=== PATIENT | male | born 1955 | race Caucasian/White ===

== ENCOUNTER → 2016-09-30 | Day surgery (SDC) | payer MEDICARE ==
[~2016-09-30] VITALS: Ht 177.8 cm; Wt 109.5 kg
[~2016-09-30] MED LIST: BACITRACIN TOP OINT 15 GM TUBE ONE; BUPIVACAINE HCL PF 0.5% 30 ML VIAL ONE; DO NOT ADM ANY ANTICOAGULANT DRUGS XX PRN; FAMOTIDINE 20 MG/2 ML VIAL ONE; HYDR-3583 PO; KETOROLAC TROMETHAMINE 60 MG/2 ML (IM) VIAL IM ONE; LACTATED RINGER'S 1000 ML INJ 1,000 ML ONE; LACTATED RINGER'S 1000 ML INJ 500 ML IV ONE; LIDOCAINE HCL 2% 50 ML VIAL ONE; LISI10TA3 PO; MIDAZOLAM HCL 2 MG/2 ML VIAL ONE; OMEP20TA PO; ONDANSETRON HCL 4 MG/2 ML VIAL IV PUSH ONE; PROPOFOL 200 MG/20 ML AMP IV ONE; ceFAZolin 2 GM PREMIX 50 ML IV SCH; fentaNYL CITRATE 250 MCG/5 ML AMP ONE
[2016-09-30 08:32] VITALS: BP 120/79; PULSE 72; RESP 20; TEMP 97.9; O2SAT 99
--- NOTE | 2016-09-30 09:00 | EKG ---
Date Performed: 09/30/2016 Time Performed: 08:11:59 PTAGE: 60 years EKG: Sinus rhythm NORMAL ECG NO PREVIOUS TRACING DOCTOR: Elías Lara Interpretating Date/Time 09/30/2016 08:58:16
--- NOTE | 2016-09-30 10:22 | PD.OP ---
Operative Report Preoperative Diagnosis: (1) NEOPLASM OF UNSP BEHAVIOR OF BONE, SOFT TISSUE, AND SKIN Postoperative Diagnosis: (1) NEOPLASM OF UNSP BEHAVIOR OF BONE, SOFT TISSUE, AND SKIN Procedure: wide excision and closure chronic skin lesion right hand dorsum Anesthesia: LMA Surgeon: Sushil Woodruff Brush Clearer Surveying(s): ana Operation and Findings: chronic skin lesion dorsal aspect of right hand frozen section: negative margins Sushil Woodruff MD Sep 30, 2016 10:22
[2016-09-30 11:37] VITALS: BP 133/74; PULSE 68; RESP 18; TEMP 96.8; O2SAT 97
--- NOTE | 2016-10-01 16:55 | MP ---
cc: RAMA HARGROVE MD DATE OF SURGERY: 09/30/2016. PREOPERATIVE DIAGNOSIS: Chronic skin lesion, right hand dorsum. POSTOPERATIVE DIAGNOSIS: Chronic skin lesion, right hand dorsum. OPERATIVE PROCEDURE PERFORMED: Wide excision and closure of chronic skin lesion right hand dorsum. SURGEON: Rama Hargrove M.D. ANESTHESIA: LMA. ESTIMATED BLOOD LOSS: Minimal. TOURNIQUET TIME: 38 minutes at 250 mmHg. SPECIMEN: Frozen section - negative margins. DISPOSITION: The patient was recovered sent to the recovery room in stable condition. INDICATIONS FOR THE PROCEDURE: The patient is a 60-year-old right-hand dominant male who presented with complaints of chronic skin lesion over the dorsal aspect of the right hand of three to four years duration. 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 The patient was consented for wide excision, possible closure, possible flap closure, possible full-thickness skin grafting. The patient was explained the risks and benefits of the procedure. DESCRIPTION OF THE PROCEDURE IN DETAIL: The patient was brought to the operating room. Under LMA the right upper extremity was thoroughly prepped and draped. The patient had a chronic skin lesion over the dorsal ulnar aspect of the hand measuring about 8 x 6 mm in diameter. An elliptical incision was marked around the lesion giving enough clear margins on both lateral aspects. After limb elevation, the tourniquet was inflated to 250 mmHg. Incision was then made over the proposed incision site. Sharp dissection was carried out. The flap of skin along with a chronic skin lesion was elevated from the surrounding soft tissue by sharp dissection. Bleeding points were cauterized with bipolar cautery. The specimen was excised and marked as two short strands as distal and one long strand as radial. The material was sent for frozen section. Frozen section was negative margins. Decision was made to proceed with the primary closure of the excision site. Mobilization of skin was carried out. Intradermal stitches were applied using 5-0 Vicryl stitches in an interrupted fashion. This was then followed by 4-0 nylon in a horizontal mattress interrupted fashion. Xeroform and bacitracin dressing applied. Then 5 mL of local anesthesia containing a mixture of 2% lidocaine and 1% Marcaine was injected across incision site. Xeroform and bacitracin dressing was applied. A bulky hand dressing was applied which was held in place by Sof-Rol and a bias hand wrap. The tourniquet was deflated. Total tourniquet time was 38 minutes. The patient had good distal circulation after the tourniquet. He was recovered and sent to the recovery room in stable condition. He will follow up with me in two to three days time for a dressing change. Rama Hargrove MD SE/KAT /10:25 AM /4:46 PM MTDD
== END | disposition home or self-care (01) ==
LOC: HSDC 07:05
PROVIDERS: ATTEND Surgery Surgery of the Hand
DX: D23.71 Other benign neoplasm of skin of right lower limb, including hip (principal); I10 Essential (primary) hypertension
CPT/HCPCS: 00400; 11423; 88305; 88331; 93005; J0690; J1885; J2250; J2405; J3010; J7120